=== PATIENT | male | born 1980 | race Caucasian/White ===

== ENCOUNTER 2018-10-19 03:49 | Emergency (ER) | payer OTHER ==
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
[2018-10-19] MEDS ORDERED: CLINDAMYCIN HCL 150 MG CAP ONE (04:47)
[2018-10-19] MEDS ORDERED: KETOROLAC 30 MG/ML INJ ONE (04:47)
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
== END 2018-10-19 04:49 | disposition home or self-care (01) ==
LOC: ER 03:49
DX: S31.31XA Laceration without foreign body of scrotum and testes, initial encounter (principal); Y04.2XXA Assault by strike against or bumped into by another person, initial encounter; Y93.9 Activity, unspecified; Y92.9 Unspecified place or not applicable
CPT/HCPCS: 96372; 99283